=== PATIENT | female | born 1940 | race Caucasian/White ===

== ENCOUNTER 2017-04-24 05:18 | Inpatient (IN) ==
[2017-04-10 09:50] LABS: MANUAL DIFF NEEDED? NO; URINE MICRO REVIEW NEEDED? NO; URINE SOURCE CLEAN CATCH
[2017-04-10 09:57] LABS: BASO% 0.2 % (0.0-0.8); EOS# 0.22 X1000 (0.0-0.7); EOS% 2.7 % (0.0-10.0); HEMATOCRIT 43.5 % (37.0-47.0); HEMOGLOBIN 13.9 g/dL (12.0-16.0); IMM GRAN# 0.02 X1000 (0.0-0.04); IMM GRAN% 0.2 % (0.0-0.5); LYMPH# 2.25 X1000 (1.2-3.4); MCH 30.2 PG (27-31); MCV 94.4 FL (81-99); MONO# 0.73 X1000 (0.11-0.59); MONO% 9.1 % (1.7-9.3); MPV 9.4 FL (7.4-10.4); NEUT% 59.8 % (42.2-75.2); PLT 315 X1000 (130-400); RBC 4.61 XMIL (4.2-5.4)
[2017-04-10 09:58] LABS: BILIRUBIN URINE NEGATIVE (NEGATIVE); BLOOD URINE NEGATIVE (NEGATIVE); COLOR YELLOW; GLUCOSE URINE NEGATIVE (NEGATIVE); LEUKOCYTES URINE NEGATIVE (NEGATIVE); NITRITE URINE NEGATIVE (NEGATIVE); PH URINE 5.5; PROTEIN URINE NEGATIVE (NEGATIVE); SP GRAVITY URINE 1.017; TURBIDITY URINE CLEAR (CLEAR); UROBILINOGEN URINE NORMAL (NORMAL)
[2017-04-10 10:01] LABS: UR EPITHELIAL CELLS <10 /HPF (<10); URINE BACTERIA NEGATIVE /HPF; URINE RBC <10 /HPF (<10); URINE WBC <10 /HPF (<10)
[2017-04-10 10:07] LABS: INR 0.96; PTT 25.9 Seconds (22.0-36.0)
[2017-04-10 10:25] LABS: AGAP 12; BUN 21 mg/dL (8-22); CALCIUM 9.5 mg/dL (8.8-10.2); CHLORIDE 100 mmol/L (98-107); COSMO 286; POTASSIUM 4.5 mmol/L (3.5-5.1); SODIUM 142 mmol/L (136-145); TCO2 30 mmol/L (25-35)
--- NOTE | 2017-04-10 11:54 | EKG Report ---
Test Performed on : 04/10/2017 08:53:39 AM Test Reason : PAT Blood Pressure : / mmHG Vent. Rate : 077 BPM Atrial Rate : 077 BPM P-R Int : 152 ms QRS Dur : 072 ms QT Int : 386 ms P-R-T Axes : 070 017 067 degrees QTc Int : 436 ms Normal sinus rhythm. Septal infarct , age undetermined Abnormal ECG No previous ECGs available Confirmed by Ketan Morel MD ([id number]) on 04/10/2017 4:17:30 PM
[2017-04-24] MEDS ORDERED: KEFZOL 1 GM/D5W 1 GM/50 ML IVPB ONE (06:03)
[2017-04-24] MEDS ORDERED: LR 1,000 ML ONE (06:03)
[2017-04-24] MEDS ORDERED: CELEBREX ONE (06:03)
[2017-04-24] MEDS ORDERED: COLACE ONE (06:03)
[2017-04-24] MEDS ORDERED: REGLAN ONE (06:03)
[2017-04-24] MEDS ORDERED: LYRICA ONE (06:03)
[2017-04-24] MEDS ORDERED: PEPCID ONE (06:03)
[2017-04-24] MEDS ORDERED: NAROPIN 0.5% ONE (06:48)
[2017-04-24] MEDS ORDERED: VERSED ONE (06:50)
[2017-04-24] MEDS ORDERED: CYKLOKAPRON 1,000 MG/NS 1,000 MG/100 ML IVPB ONE (07:04)
[2017-04-24] MEDS ORDERED: NEOSPORIN G.U. IRRIGANT ONE (07:04)
[2017-04-24] MEDS ORDERED: EXPAREL 1.3% ONE (07:04)
[2017-04-24] MEDS ORDERED: TORADOL ONE (07:04)
[2017-04-24] MEDS ORDERED: SODIUM CHLORIDE 0.9% ONE (07:04)
[2017-04-24] MEDS ORDERED: MARCAINE 0.25% PF/EPI 1:200,000 ONE (07:04)
[2017-04-24 08:21] LABS: URINE MICRO REVIEW NEEDED? NO; URINE SOURCE CATH
[2017-04-24 08:29] LABS: BILIRUBIN URINE NEGATIVE (NEGATIVE); BLOOD URINE NEGATIVE (NEGATIVE); COLOR YELLOW; GLUCOSE URINE NEGATIVE (NEGATIVE); LEUKOCYTES URINE NEGATIVE (NEGATIVE); NITRITE URINE NEGATIVE (NEGATIVE); PROTEIN URINE NEGATIVE (NEGATIVE); SP GRAVITY URINE 1.018; TURBIDITY URINE CLEAR (CLEAR); UROBILINOGEN URINE NORMAL (NORMAL)
[2017-04-24 08:30] LABS: UR EPITHELIAL CELLS <10 /HPF (<10); URINE BACTERIA NEGATIVE /HPF; URINE RBC <10 /HPF (<10); URINE WBC <10 /HPF (<10)
[2017-04-24] MEDS ORDERED: DIPRIVAN 1% ONE (09:13)
[2017-04-24] MEDS ORDERED: NS 1,000 ML ONE (09:13)
--- NOTE | 2017-04-24 09:29 | OPERATIVE NOTE ---
PROCEDURE DATE: 04/24/2017 PREOPERATIVE DIAGNOSIS: Left chronic rotator cuff tear and glenohumeral arthritis. POSTOPERATIVE DIAGNOSIS: Left chronic rotator cuff tear and glenohumeral arthritis. PROCEDURE: Left reverse shoulder arthroplasty with a DePuy Delta Xtend size 10 press-fit stem, a 42+ 6 humeral cup, a 42 eccentric Glenosphere and a standard Metaglene. SURGEON: Donnell Cuenca MD ASSISTANTS: ADAN Patten and KATHERINE Ratliff ANESTHESIA: General. IV FLUIDS: 1000 mL lactated Ringer's. ESTIMATED BLOOD LOSS: 100 mL. COMPLICATIONS: None. INDICATIONS: The patient is a 76-year-old female with a chronic history of pain and weakness in left upper extremity. MRI was obtained and revealed chronic rotator cuff tear and had some underlying glenohumeral arthritis. Recommendation to proceed with left reverse shoulder arthroplasty was offered. Risks and benefits of surgery were explained, including the risks of anesthesia, , bleeding, infection, failure to relieve pain, postoperative stiffness, nerve injury, blood clots, and other imponderables. All questions were answered. The patient wished to proceed with surgery. DETAILS OF OPERATION: The patient was taken to the operating table and placed supine on the operating table. Once adequate anesthesia was obtained, the left shoulder subsequently placed in semi-Camp beach-chair position. The left shoulder was subsequently prepped and draped in usual sterile fashion. A standard deltopectoral incision was made with a skin knife. Hemostasis was obtained using electrocautery. The deltopectoral interval was then developed and Buckner retractors were placed. The conjoined tendon was elevated as well. Attention turned the subscapularis where stay sutures were placed. The subscapularis tendon was released approximately 1 cm medial to this insertion site. Retractors then placed. The shoulder was then dislocated anteriorly and had evidence of a chronic rotator cuff tear superiorly. A starting reamer was then passed. Sequential reamings was then conducted up to size 10. A guidepin was then placed in position. The humeral head was then resected, approximately 10 degrees of retroversion. After this had been performed, a protective disk was placed. Attention was turned to the glenoid and circumferential dissection performed with a deep knife. A guide was then placed in position. Guide pin was then placed in the glenoid. Reaming was then conducted. The central hole was then dilated. Copious irrigation performed with antibiotic pulsatile lavage. A standard Metaglene was then impacted into position. Two locking screws were placed and 2 nonlocking screws had good purchase on each screw. The wound was copiously once again. A 42 eccentric Glenosphere was then placed with the eccentricity placed inferiorly. Attention turned to the proximal humerus. The guide was then placed in position. The proximal humerus was then reamed. Wound was copiously irrigated with antibiotic pulsatile lavage. The size 10 press-fit stem was then impacted into position and had a good fit. Trial cup size then placed with a 42+ 6. Had excellent stability and range of motion. The trial cup was then removed. Copious irrigation performed again with antibiotic pulsatile lavage. A 42+ 6 humeral cup was then placed and the shoulder was reduced, carried through range of motion and had excellent range of motion and stability. Subscapularis tendon was not able to be repaired. Exparel was placed in deep soft tissue, as well as subcutaneous tissue. The final irrigation was then performed. A 2-0 Vicryl was then placed in subcutaneous tissue, followed by running 2-0 Prolene. Benzoin and Steri-Strips applied. Adaptic, sterile 4 x 4, ABD pad, and tape the left shoulder, followed by shoulder immobilizer. All counts were correct. The patient tolerated the procedure well and was transferred recovery room in stable condition. cc: Donnell Cuenca MD
[2017-04-24] MEDS ORDERED: MORPHINE IV PRN (09:47)
[2017-04-24] MEDS ORDERED: ZOFRAN ONE (09:48)
[2017-04-24] MEDS ORDERED: NEO-SYNEPHRINE ONE (09:48)
[2017-04-24] MEDS ORDERED: NEOSTIGMINE ONE (09:48)
[2017-04-24] MEDS ORDERED: QUELICIN (DOSE) ONE (09:49)
[2017-04-24] MEDS ORDERED: ROBINUL ONE (09:49)
[2017-04-24] MEDS ORDERED: EPHEDRINE ONE (09:49)
[2017-04-24] MEDS ORDERED: DECADRON ONE (09:49)
[2017-04-24] MEDS ORDERED: NS 250 ML ONE (09:49)
[2017-04-24] MEDS ORDERED: NORCURON ONE (09:49)
[2017-04-24] MEDS ORDERED: XYLOCAINE-MPF 2% ONE (09:49)
[2017-04-24] MEDS ORDERED: ZOFRAN PO PRN (10:00)
[2017-04-24] MEDS ORDERED: MILK OF MAGNESIA PO PRN (10:00)
--- NOTE | 2017-04-24 12:50 | Diag Imaging Result Doc PS360 ---
EXAM: SHOULDER 1 VIEW LEFT HISTORY: left total shoulder TECHNIQUE: Portable left shoulder COMPARISON: 04/11/2016 FINDINGS: Interval placement of the left shoulder. Orthopedic hardware appears well positioned in the proximal humerus. No fracture. No separation at the acromioclavicular joint. IMPRESSION: Recently replaced left shoulder with no abnormality identified. Electronically signed by Kota Lacey 04/24/2017 12:48 PM
[2017-04-24] MEDS: NS 1,000 ML IV SCH ×3 (13:00→22:12)
[2017-04-24] MEDS ORDERED: CYKLOKAPRON 1,000 MG in NS 100 ML IV ONE (13:30)
[2017-04-24] MEDS: MIRAPEX PO SCH ×2 (13:35→22:11)
[2017-04-24] MEDS: CYMBALTA PO SCH (13:35)
[2017-04-24] MEDS: PRILOSEC PO SCH (13:36)
[2017-04-24] MEDS: PRAVACHOL PO SCH (13:36)
[2017-04-24] MEDS: TYLENOL PO SCH ×2 (13:38→22:11)
[2017-04-24] MEDS: DIOVAN PO SCH (18:07)
[2017-04-24] MEDS: HYDROCHLOROTHIAZIDE PO SCH (18:08)
[2017-04-24] MEDS: KEFZOL 1 GM/D5W 1 GM/50 ML IVPB IV SCH (18:28)
[2017-04-24] MEDS: OXY IR PO PRN (19:40)
[2017-04-24] MEDS: PERIDEX MT SCH (20:48)
[2017-04-24] MEDS: COLACE PO SCH (20:48)
[2017-04-25] MEDS: KEFZOL 1 GM/D5W 1 GM/50 ML IVPB IV SCH (03:13)
[2017-04-25 05:55] LABS: HEMOGLOBIN 11.4 g/dL (12.0-16.0)
[2017-04-25 06:19] LABS: AGAP 16; BUN 14 mg/dL (8-22); CALCIUM 8.4 mg/dL (8.8-10.2); CHLORIDE 105 mmol/L (98-107); COSMO 290; SODIUM 144 mmol/L (136-145); TCO2 23 mmol/L (25-35)
--- NOTE | 2017-04-25 07:01 | PROGRESS NOTE ---
DATE: 04/25/2017 SUBJECTIVE: Patient is a pleasant 76-year-old female, who is 1 day status post left reverse total shoulder arthroplasty. She is currently resting comfortably and has no complaints. OBJECTIVE: On physical exam, the patient's left upper extremity dressing are intact. She has neurovascularly intact throughout. 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 LABORATORY DATA: Her hemoglobin is 11.4 and hematocrit is 36.0. IMPRESSIONS: Postop day #1 status post left reverse shoulder arthroplasty. PLAN: At this point, we will change her dressing and discontinue her drain and Fernandez. We will plan on discharging home later this morning. Also we will plan on discharging home after therapy. The patient will receive home physical therapy. She will follow up in approximately 2 weeks. cc: Donnell Cuenca MD
[2017-04-25] MEDS ORDERED: PEPCID PO SCH (09:00)
[2017-04-25] MEDS ORDERED: CELEBREX PO SCH (09:00)
[2017-04-25] MEDS: PERIDEX MT SCH (09:48)
[2017-04-25] MEDS: MIRAPEX PO SCH (09:48)
[2017-04-25] MEDS: CYMBALTA PO SCH (09:48)
[2017-04-25] MEDS: TYLENOL PO SCH (09:48)
[2017-04-25] MEDS: PRILOSEC PO SCH (09:49)
[2017-04-25] MEDS: DIOVAN PO SCH (09:49)
[2017-04-25] MEDS: OXY IR PO PRN ×2 (09:49→13:17)
[2017-04-25] MEDS: PRAVACHOL PO SCH (09:50)
[2017-04-25] MEDS: HYDROCHLOROTHIAZIDE PO SCH (09:50)
[2017-04-25] MEDS: COLACE PO SCH (09:50)
[2017-04-25 15:35] VITALS: BP 128/59
== END 2017-04-25 14:30 | disposition home health service (06) ==
LOC: SURHOLD 05:18 → 4N 09:38
PROVIDERS: ADMIT Orthopaedic Surgery Adult Reconstructive Orthopaedic Surgery; ATTEND Orthopaedic Surgery Adult Reconstructive Orthopaedic Surgery